=== PATIENT | male | born 1990 | race Caucasian/White ===

== ENCOUNTER 2024-08-18 09:40 | Emergency (ER) | payer OTHER, SELFPAY ==
--- OUTSIDE RECORDS SUMMARY | 2024-08-17 14:19 | XMS_ITS | Continuity of Care Document ---
Author Name [facility] Organization [facility] Care Team Providers Care Mobile Ui/Ux Designer Name Role Phone [facility] Unavailable Unavailable Problems Combined list of problems from Department of Defense and Veterans Affairs facilities. It does not include entries that were removed or entered in error. 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 [facility] FACET SYNDROME LUMBAR Active Condition DoD FACET SYNDROME THORACIC Active Condition DoD ASTIGMATISM Active Condition DoD lower back pain Active Condition [facility] visit for: screening exam pulmonary tuberculosis Inactive Condition DoD visit for: routine eye exam Inactive Condition DoD Laboratory Studies Inactive Condition Do D visit for: services physical demobilization Active Condition [facility] Vaccines Prophylactic Need Against Influenza Inactive Condition DoD headache Inactive Condition [facility] visit for: examination of subpopulation Inactive Condition DoD INJURY FROM TERRORIST EXPLOSION IMPROVISED EXPLOSIVE DEVICE Inactive Condition DoD visit for: screening exam neurological disorders traumatic brain injury Inactive Condition DoD Vaccines Prophylactic Need Against Single Disease Inactive Condition DoD SUPERFICIAL INJURY - ABRASION OF RIGHT LEG Inactive Condition DoD HEARING LOSS Active Condition [facility] visit for: services physical Active Condition DoD Patient Counseling: Active Condition Do D INGROWING NAIL WITH INFECTION Inactive Condition [facility] visit for: ears / hearing exam Active Condition [facility] visit for: services physical accession Active Condition [facility] NORMAL EXAMINATION Active Condition DoD BRONCHITIS Inactive Condition DoD SINUSITIS Active Condition DoD VIRAL SYNDROME Inactive Condition [facility] Medications Combined list of outpatient medications from Department of Defense and Veterans Affairs facilities.Medications provided include 1) outpatient medications from the last 15 months, and 2) patient-reported medications. Medication Details Route Status Patient Instructions Prescription Expires Prescription Number Last Dispense Date Ordering Provider Order Date Order Qty Source OMEPRAZOLE (omeprazole ), 40 MG, CAPSULE DR, ORAL, [facility], 500 ea. BOTTLE Active [id number] 2023 90 Pharmac y Data Transac tion Service Facilit y VALACYCLOVI R (valacyclov ir HCl), 500 MG, TABLET, ORAL, ANA PHA, 90 ea. BOTTLE Active [id number] 4 2023 90 Pharmac y Data Transac tion Service Facilit y Allergies, Adverse Reactions, Alerts Combined list of allergies from Department of Defense and Veterans Affairs facilities. It does not include entries that were removed or entered in error. Substance Category Reaction Severity Reaction type Status Date Reported Comments Source No Known Allergies Drug allergy (disorder) active 07/19/2008 [facility] [place] Immunizations Combined list of available immunizations from the Department of Defense and Veterans Affairs facilities. Immunization Series Date Given Administered By Site Reaction Lot Number CVX Code Drug Travel Writer Status Comments Source COVID-19, mRNA, LNP-S, PF, 100 mcg or 50 mcg dose 2020 [id number], () Not Given COVID-19, mRNA, LNP-S, PF, 100 mcg or 50 mcg dose DoD COVID-19, mRNA, LNP-S, PF, 100 mcg or 50 mcg dose 2020 [id number] [employer] (MOD) Not Given COVID-19, mRNA, LNP-S, PF, 100 mcg or 50 mcg dose DoD Influenza, seasonal, injectable 1 2010 [id number] [facility] VivoxSkout (SKB) complet ed Influenza , seasonal, injectabl e DoD anthrax vaccine 3 2010 [id number] [employer] Linsey (MIP) complet ed anthrax vaccine DoD anthrax vaccine 2 2010 [id number] [employer] Jbphh (MIP) complet ed anthrax vaccine DoD vaccinia (smallpox) vaccine 1 2010 [id number] 75 Unknown (UNK) complet ed vaccinia (smallpox ) vaccine DoD influenza virus vaccine, live, attenuated, for intranasal use 1 2009 [id number] Supersolid, Neuronetics. (MED) complet ed influenza virus vaccine, live, attenuate d, for intranasa l use DoD typhoid Vi capsular polysaccharid e vaccine 1 2009 [id number] Sanofi Pasteur (PMC) complet ed typhoid Vi capsular polysacch aride vaccine DoD anthrax vaccine 1 2009 [id number] 24 Unknown (UNK) comple t ed anthrax vaccine DoD Novel influenza-H1N 1-09, injectable 1 2009 [id number] 127 Novartis iSOCO Ranjith. (NOV) complet ed Novel influenza -[id number], injectabl e DoD hepatitis B vaccine, adult dosage 3 2008 [id number] 43 MedImmune, Inc. (MED) complet ed hepatitis B vaccine, adult dosage DoD hepatitis A vaccine, adult dosage 3 2008 [id number] 52 MedImmune, Inc. (MED) complet ed hepatitis A vaccine, adult dosage DoD influenza virus vaccine, live, attenuated, for intranasal use 1 2008 [id number] 111 Supersolid, Inc. (MED) complet ed influenza virus vaccine, live, attenuate d, for intranasa l use DoD hepatitis A and hepatitis B vaccine 2 2008 [id number] 104 Sanofi Pasteur (PMC) complet ed hepatitis A and hepatitis B vaccine DoD hepatitis A and hepatitis B vaccine 1 2008 [id number] 104 Sanofi Pasteur (PMC) complet ed hepatitis A and hepatitis B vaccine DoD measles, mumps and rubella virus vaccine 1 2008 UNK 03 Unknown (UNK) Not Given measles, mumps and rubella virus vaccine DoD varicella virus vaccine 1 2008 UNK 21 Unknown (UNK) Not Given varicella virus vaccine DoD poliovirus vaccine, inactivated 1 2008 [id number] 10 Sanofi Pasteur (PMC) complet ed polioviru s vaccine, inactivat ed DoD meningococcal polysaccharid e (groups A, C, Y and W-135) diphtheria toxoid conjugate vaccine (MCV4P) 1 2008 [id number] 114 Sanofi Pasteur (PMC) complet ed meningoco ccal polysacch aride (groups A, C, Y and W-135) diphtheri a toxoid conjugate vaccine (MCV4P) DoD tetanus toxoid, reduced diphtheria toxoid, and acellular pertu is vaccine, adsorbed 1 2008 [id number] 115 Sanofi Pasteur (PMC) complet ed tetanus toxoid, reduced diphtheri a toxoid, and acellular pertussis vaccine, adsorbed DoD Encounters Combined list of: 1) Encounters from Department of Veterans Affairs facilities going backup to the last 18 months, not all VA inpatient encounters are included; 2) Encounters from the Department of Defense facilities going backup to 280 months. Location Location Details Encounter Type Encounter Number Reason For Visit Attending Provider ADM Date DC Date Status Disposition Source [place], [place]([facility] [address] [address]) OUTPATIENT [id number] LACHELLE Barraza 07/19 Released w/o Limitations DARREN Hackett([place] [address]) DARREN Hackett([facility]) OUTPATIENT [id number] sore throat CINTHIA BLAKELY 07/19 Released w/o Limitations DARREN Hack[facility]) DARREN Hackett([facility]) OUTPATIENT [id number] MINERVA CHOW 08/02 Released w/o Limitations DARREN Hackett([facility] ) DERICK Johnson([facility]) OUTPATIENT [id number] INGROWN TOENAIL X 2 WEEKS GUILLERMO JONES 11/10 Released w/o Limitations DERICK Johnson([facility]) DERICK Johnson([facility]) OUTPATIENT [id number] Hearing Exam JACK CHEN 08/30 Released w/o Limitations DERICK Johnson(Hear ing Conserv ation 2) DERICK Johnson(Audiol ogy Clinic) OUTPATIENT [id number] [facility] New H2 BERTRAM DEVLIN H 09/04 Released w/o Limitations DERICK Johnson(Unruly ology Clinic) DERICK Johnson([facility]) OUTPATIENT [id number] infecti on LESA DOMINGUEZ 11/06 Released w/o Limitations DERICK Johnson([facility]) [facility] OUTPATIENT [id number] 09/21 Released w/o Limitations [facility] OUTPATIENT [id number] 12/03 Sick at Home/Quarter s Theater Facilit y Theater [facility] OUTPATIENT [id number] 12/30 Released w/o Limitations Theater Facilit y DERICK Johnson(Deploy ment) OUTPATIENT [id number] DEMOB/I MM/LAB/ VISION LISA PALMA 04/04 Released w/o Limitations DERICK Johnson(Depl oyment) DERICK Johnson(Hearin g Conservat ion 2) OUTPATIENT [id number] Hearing Exam VON PALOMO 04/04 Released w/o Limitations DERICK Johnson(Hear ing Conserv ation 2) DERICK Johnson(Deploy ment) OUTPATIENT [id number] IMM GERI GERBER 04/07 Released w/o Limitations DERICK Johnson(Depl oyment) DERICK Johnson(Hearin g Conservat ion 2) OUTPATIENT [id number] Hearing Exam JACK CHEN 04/11 Released w/o Limitations DERICK Johnson(Hear ing Conserv ation 2) DERICK Johnson([address] WTT 3) OUTPATIENT [id number] ETS JOSE LUIS MUELLER 06/18 Released w/o Limitations DERICK Johnson([address] WTT 3) DERICK Johnson([facility] Opto) OUTPATIENT [id number] Notes Entered by: LORE GARCÍA 19 Jun 2011 0920 ------- ------- ------- ------- -- ets ELIA Rosa 06/18 Released w/o Limitations DERICK Johnson([facility] Opto) DERICK Johnson([address] 4) OUTPATIENT [id number] phase 2 LESA DOMINGUEZ 07/13 Released w/o Limitations DERICK Johnson([address] 4) DERICK Johnson([facility] Opto) OUTPATIENT [id number] JOSELIN CATHERINE 07/15 Released w/o Limitations DERICK Johnson([facility] Opto) DERICK Johnson([facility] Chiro) OUTPATIENT [id number] lower back pain GOLDBERG, ANGEL A 07/17 Released w/o Limitations DERICK Johnson([facility] Chiro) DERICK Johnson([facility] Chiro) OUTPATIENT [id number] lbp GOLDBERG, ANGEL A 07/27 Released w/o Limitations DERICK Johnson([facility] Chiro) DERICK Johnson([facility] Chiro) OUTPATIENT [id number] lbp EDWAR GOLDBERGO A 08/03 Released w/o Limitations DERICK Johnson([facility] Chiro) DERICK Johnson([facility] Chiro) OUTPATIENT [id number] lbp EDWAR GOLDBERGO A 08/12 Released w/o Limitations DERICK Johnson([facility] Chiro) DERICK Johnson([facility]) OUTPATIENT [id number] lbp EDWAR GOLDBERGO A 08/20 Released w/o Limitations DERICK Johnson([facility] Chiro) DERICK Johnson([facility]) OUTPATIENT [id number] mri review lb ANGEL GOLDBERG A 08/28 Released w/o Limitations DERICK Johnson([facility] Chiro) DERICK Johnson([facility]) OUTPATIENT [id number] PDHRA STEVEN KNIGHT E 09/07 Released w/o Limitations DERICK Johnson(Depl oyment) Procedures Combined list of: 1) Procedures from Department of Veterans Affairs facilities going back up to thelast 18 months, not all VA non-surgical procedures are included; 2) All procedures from the Department of Defense facilities. Procedure Procedure Type Code Date Perfomer Comments [facility] e INFECTIOUS AGENT ANTIGEN DETECTION BY IMMUNOASSAY WITH DIRECT OPTICAL (IE, VISUAL) OBSERVATION; INFLUENZA DoD CHIROPRACTIC MANIPULATIVE TREATMENT (CMT); SPINAL, 3-4 REGIONS DoD APPLICATION OF A MODALITY TO 1 OR MORE AREAS; ELECTRICAL STIMULATION (MANUAL), EACH 15 MINUTES DoD APPLICATION OF A MODALITY TO 1 OR MORE AREAS; ELECTRICAL STIMULATION (MANUAL), EACH 15 MINUTES DoD CHIROPRACTIC MANIPULATIVE TREATMENT (CMT); SPINAL, 3-4 REGIONS DoD CHIROPRACTIC MANIPULATIVE TREATMENT (CMT); SPINAL, 3-4 REGIONS DoD FITTING OF SPECTACLES, EXCEPT FOR APHAKIA; MONOFOCAL DoD SCREENING TEST OF VISUAL ACUITY, QUANTITATIVE, BILATERAL DoD EAR PROTECTOR ATTENUATION MEASUREMENTS DoD SKIN TEST; TUBERCULOSIS, INTRADERMAL DoD EAR PROTECTOR ATTENUATION MEASUREMENTS DoD SCREENING TEST OF VISUAL ACUITY, QUANTITATIVE, BILATERAL DoD SKIN TEST; TUBERCULOSIS, INTRADERMAL DoD COLLECTION OF VENOUS BLOOD BY VENIPUNCTURE [facility] EDUCATION &TRAINING, PATIENT SELF-MGT QUALIFIED, NONPHYSICIAN HEALTH REFRIGERATION BRAZER/SOLDERER USING STDIZED CURRICULUM, [id number] W THE PATIENT (COULD INCL CAREGIVER/FAMILY) EA 30 MIN; INDIVIDUAL PATIENT DoD SCREENING TEST OF VISUAL ACUITY, QUANTITATIVE, BILATERAL DoD TYPHOID VACCINE, CAPSULAR POLYSACCHARIDE (VICPS), FOR INTRAMUSCULAR USE DoD EAR PROTECTOR ATTENUATION MEASUREMENTS DoD ANTHRAX VACCINE, FOR SUBCUTANEOUS OR INTRAMUSCULAR USE [facility] COLLECTION OF VENOUS BLOOD BY VENIPUNCTURE DoD SCREENING TEST OF VISUAL ACUITY, QUANTITATIVE, BILATERAL 009 DoD Chiropractic Manip Treatmt (CMT) [facility] [place] [facility] [place] Chiropractic Manip Treatmt (CMT) Spinal [place] [id number] 012 ANGEL GOLDBERG CMT of the following listed segmental dysfunctions: Thoracic: high velocity, low amplitude PA rotational thrust into the segment's para-physiologic al space to improve biomechanical function. Lumbar: high velocity, low amplitude PA rotational thrust into the segment's para-physiologic al space to improve biomechanical function. SI joints: side posture PA thrust into the segment's para-physiologic al space to improve biomechanical function. [facility] Modalities Electrical Stimulation Attended Each 15 Minutes Modalities Electrical Stimulation Attended Each 15 Minutes [id number] GUILLE MCCULLOUGH IFS to lumbar paraspinal muscles: 10', 27460 CV, 2500 Akers freq, 40% vscan. CMT of the following listed segmental dysfunctions: Thoracic: high velocity, low amplitude PA rotational thrust into the segment's para-physiologic al space to improve biomechanical function. Lumbar: high velocity, low amplitude PA rotational thrust into the segment's para-physiologic al space to improve biomechanical function. SI joints: side posture PA thrust into the segment's para-physiologic al space to improve biomechanical function. [facility] Chiropractic Manip Treatmt (CMT) Spinal [place] Chiropractic Manip Treatmt (CMT) Spinal [place] [address] [facility] Chiropractic Manip Treatmt (CMT) Spinal [place] Chiropractic Manip Treatmt (CMT) Spinal [place] [address] [facility] CMT of the following listed segmental dysfunctions: Thoracic: high velocity, low amplitude PA rotational thrust into the segment's para-physiologic al space to improve biomechanical function. Lumbar: high velocity, low amplitude PA rotational thrust into the segment's para-physiologic al space to improve biomechanical function. SI joints: side posture PA thrust into the segment's para-physiologic al space to improve biomechanical function. [facility] Modalities Electrical Stimulation Attended Each 15 Minutes Modalities Electrical Stimulation Attended Each [address] [facility] Chiropractic Manip Treatmt (CMT) Spinal Three To Four [facility] Chiropractic Manip Treatmt (CMT) Spinal Three [place] Four Region [facility] ANGEL GOLDBERG CMT of the following listed segmental dysfunctions: Thoracic: high velocity, low amplitude PA rotational thrust into the segment's para-physiologic al space to improve biomechanical function. Lumbar: high velocity, low amplitude PA rotational thrust into the segment's para-physiologic al space to improve biomechanical function. SI joints: side posture PA thrust into the segment's para-physiologic al space to improve biomechanical function. [facility] Modalities Electrical Stimulation Attended Each 15 Minutes Modalities Electrical Stimulation Attended Each 15 Minutes ANGEL GOLDBERG IFS to lumbar paraspinal muscles: 10', 73569 CV, 2500 Akers freq, 40% vscan. [facility] Chiropractic Manip Treatmt (CMT) [facility] [place] Chiropractic Manip Treatmt (CMT) Spinal [place] 28[address] ANGEL GOLDBERG CMT of the following listed segmental dysfunctions: Thoracic: high velocity, low amplitude PA rotational thrust into the segment's para-physiologic al space to improve biomechanical function. Lumbar: high velocity, low amplitude PA rotational thrust into the segment's para-physiologic al space to improve biomechanical function. SI joints: side posture PA thrust into the segment's para-physiologic al space to improve biomechanical function. [facility] Spectacles Services Fitting Monofocals (Not For Aphakia) Spectacles Services Fitting Monofocals (Not For Aphakia) 74243 JOSELIN PAEZ Determination Of Refractive State Determination Of Refractive State 29391 JOSELIN PAEZ Ophthalmological Prior Patient Start Comprehensive Care Ophthalmological Prior Patient Start Comprehensive Care 05485 JOSELIN PAEZ Screening Test Of Visual Acuity, Quantitative, Bilateral Screening Test Of Visual Acuity, Quantitative, Bilateral 15035 ELIA MCKINLEY Audiogram (Screening) Audiogram (Screening) 49808 012 JACK CHEN [facility] Testing Audiometry Group Testing [phone] JACK CHEN Ear Protector Attenuation Measurements Ear Protector Attenuation Measurements 10335 012 JACK CHEN Skin Test Anergy Tuberculin Intradermal Skin Test Anergy Tuberculin Intradermal 60917 012 SULY DAVIS [facility] Testing Audiometry Group Testing 04913 012 [place] Ear Protector Attenuation Measurements Ear Protector Attenuation Measurements 98493 [place] Audiogram (Screening) Audiogram (Screening) 15958 012 [place] Screening Test Of Visual Acuity, Quantitative, Bilateral Screening Test Of Visual Acuity, Quantitative, Bilateral 56287 DANYEL AGUIRRE [facility] Venipuncture Venipuncture [address] [place] DANYEL [facility] Skin Test Anergy Tuberculin Intradermal Skin Test Anergy Tuberculin Intradermal 77498 AGUIRREDANYEL [facility] Patient Counseling Medical Management Individual Patient Patient Counseling Medical Management Individual Patient [phone] BERTRAM DEVLIN [facility] Ear Protector Attenuation Measurements Ear Protector Attenuation Measurements 26575 010 OLIVER SILVA [facility] Audiogram (Screening) Audiogram (Screening) 72845 OLIVER SILVA [facility] Testing Audiometry Group Testing 79030 OLIVER SILVA Infect Agt Antig Det Immunoa ay Dir Opt Obs Influenza Infect Agt Antig Det Immunoassay Dir Opt Obs Influenza 67682 CINTHIA BLAKELY [facility] Rapid Antigen Identification Streptococcus Group A Beta Hemolytic Rapid Antigen Identification Streptococcus Group A Beta Hemolytic 52348 CINTHIA BLAKELY [facility] Social History Combined list of available smoking, tobacco, and other social history from Department of Defense and Veterans Affairs facilities. Social History Type Response Date Comment Sour e This section is an empty social history section. [facility]
[2024-08-18] VITALS (7 sets, daily range): BP systolic 105; BP diastolic 65; PULSE 103–126; RESP 16–18; TEMP 37.7; O2SAT 95–97; BMI 28.2
--- OUTSIDE RECORDS SUMMARY | 2024-08-18 09:43 | XMS_ITS | Clinical Summary ---
Author Organization [facility] Address [address] [place] [id number] Care Team Providers Care Undercover Cop Name Role Phone Kelvin Marie MD Primary Care Provider [phone] Allergies No known active allergies Medications valACYclovir (VALTREX) 500 mg tabletIndication s:PCR DNA positive for HSV2 Take 1 Tablet (500 mg) by mouth once daily. 90 Tablet 11/11/2023 Active omeprazole (PRILOSEC) 40 mg Delayed-Release capsuleIndicatio ns:Gastroesophag eal reflux disease without esophagitis Take 1 Capsule (40 mg) by mouth once daily. 90 Capsule 11/11/2023 Active meloxicam 15 mg tabletIndication s:Arthralgia, unspecified joint Take 1 Tablet (15 mg) by mouth once daily. 90 Tablet 11/11/2023 Active Active Problems No known active problems Encounters Date Type Department Care Team Description 08/17/2024 2:45 PM CDT - 08/17/2024 11:59 PM CDT Hospital Encounter [facility] [address] [place] [address] Jacy Merchant NP Abdominal pain, RLQ (right lower quadrant) 08/17/2024 2:20 PM CDT Office Visit [facility] [address] [facility] [place] [phone] Jacy Merchant NP Abdominal Pain (LRQ tenderness, low grade fever, x 3 days) 08/17/2024 Travel from Last 3 Months Immunizations Immunization Administration Dates Next Due Anthrax Vaccine 09/21/2010,03/28/2010,08/22/2009 COVID-19 vaccine (Moderna 10 0mcg/0.5mL) PF, MDV 02/17/2021,12/29/2020 HepA-HepB (Twinrix) 08/14/2008,06/09/2008 Hepatitis A (Adult) 01/10/2009 Hepatitis B (Adult) 01/10/2009 Inactivated Polio Vaccine 06/07/2008 Influenza A (H1N1), Inactiva tere (Age >=3 Years) 04/09/2009 Influenza, IIV4 02/17/2020 Influenza,CCIIV4 PRESERV FREE 12/30/2021, 020 Influenza,LAIV4 Live Intranasal (Flumist) 2009,12/04/2008 Meningococcal Vaccine (Menactra) 06/07/2008 Smallpox (Vaccinia) Live [id number] 03/28/2010 Tdap 09/13/2018,06/07/2008 Typhoid (injectable) 08/30/2009 Family History Medical History Relation Name Comments Hypertension Father Diabetes Mother Hypertension Mother Relation Name Status Comments Father Alive Mother Alive Social History Tobacco Use Types Packs/Day Years Used Date Smoking Tobacco: Never Passive Smoke Exposure: Past Smokeless Tobacco: Former Chew Quit: 11/25/2021 Tobacco Cessation:Counseling Given: Not Answered Passive Exposure Comments:mom smoked in child epperson life Alcohol Use Standard Drinks/Week Comments Yes 0 (1 standard drink = 0.6 oz pure alcohol) occasionally wine, beer or liquor PHQ-2 Answer Date Recorded PHQ-2 TOTAL SCORE 0 11/11/2023 Social Connections Answer Date Recorded Frequency of Communication with Friends and Fami ly 0 05/04/2022 Financial Resource Strain Answer Date R ecorded Difficulty of Paying Living Expenses 3 05/04/2022 Difficulty of Paying Living Expenses Not on file 05/04/2022 Food Insecurity Answer Date Recorded Worried About Running Out of Food in the Last Ye ar 1 05/04/2022 Transportation Needs Answer Date Record ed Lack of Transportation (Medical) 1 05/04/2022 Housing Stability Answer Date Recorded Unable to Pay for Housing in the Last Year 1 05/04/2022 Sex and Gender Information Value Date Recorded Sex Assigned at Not on file Legal Sex Male 3:04 PM FLEET ASSISTANT Gender Identity Not on file Sexual Orientation Not on file Obstetrics History Last Filed Vital Signs Vital Sign Reading Time Taken Comments Blood Pressure 124/69 08/17/2024 2:25 PM CDT Pulse 111 08/17/2024 2:25 PM CDT Temperature 37.6 C (99.6 F) 08/17/2024 2:25 PM CDT Respiratory Rate 18 08/17/2024 2:25 PM CDT Oxygen Saturation 98% 08/17/2024 2:25 PM CDT Inhaled Oxygen Concentration - - Weight 80.6 kg (177 lb 11.2 oz) 08/17/2024 2:25 PM CDT Height 171.5 cm (5' 7.5) 04/14/2024 10 :27 AM FLEET ASSISTANT Body Mass Index 27.42 04/14/2024 10:27 AM FLEET ASSISTANT Plan of Treatment Upcoming Encounters Date Type Department Care Team (Late st Contact Info) Description 08/18/2024 3:00 PM CDT Office Visit [address] [phone] Jacy Mistry DO [address] [place] [address] 08/24/2024 2:50 PM CDT Office Visit [address] [place] [phone] Kelvin Marie MD [address] [place] [address] Health Maintenance Due Date Last Done Comments COVID-19 vaccine series ( season) 2023 02/17/2021, 12/29/2020 Depression screening for age 12+ 11/10/2024 11/11/2023, 06/06/2022, 03/26/2021, Additional history exists Influenza Vaccine (Season Ended) 2024 12/30/2021, 02/17/2020, 02/17/2020, Additional history exists BMI (ht and wt on same day) for age 18+ 04/14/2025 04/14/2024, 11/11/2023, 02/03/2023, Additional history exists Tetanus booster 09/13/2028 09/13/2018, 06/07/2008 Lipids for age 35-44 04/29/2029 04/29/2024, 11/11/2023, 11/11/2023, Additional history exists Hepatitis B series for 19+ Completed 01/10, 08/14/2008, 06/09/2008 HIV for age 15-65 Completed 02/19/2015, 07/26/2013 Tdap Completed 09/13/2018, 06/07/2008 Hepatitis C screening for age 18-79 Completed 06/06/2022 Pneumococcal series for age 6-49 Aged Out No longer eligible based on patient's age to complete this topic Procedures Procedure Name Priority Date/Time Associated Diagnosis Comments CBC WITH AUTO DIFFERENTIAL STAT 08/17/2024 3:25 PM CDT Abdominal pain, RLQ (right lower quadrant) BASIC METABOLIC PANEL STAT 08/17/2024 3:25 PM CDT Abdominal pain, RLQ (right lower quadrant) CBC WITH AUTO DIFFERENTIAL STAT 08/17/2024 3:25 PM CDT Abdominal pain, RLQ (right lower quadrant) CT ABDOMEN PELVIS W STAT 08/17/2024 3 :08 PM CDT Abdominal pain, RLQ (right lower quadrant) LIPID PANEL W REFLEX MEASURED LDL Routine 04/29/2024 11:12 AM FLEET ASSISTANT Hypertriglyceridemi a LC HCV ANTIBODY RFX TO QUANT PCR Routine 06/06/2022 4:25 PM CDT Well adult exam ANTI HIV 1/2 Routine 02/19/2015 3:58 PM FLEET ASSISTANT Rash from Last 3 Months or Most Recently Relevant to Health Maintenance Results * (ABNORMAL) CBC WITH AUTO DIFFERENTIAL (08/17/2024 3:25 PM CDT) WHITE BLOOD COUNT 7.6 4.5 - 11.0 thou/cu mm 08/17/2024 3:40 PM [facility] RED BLOOD COUNT 4.54 4.30 - 5.90 mil/cu mm 08/17/2024 3:40 PM [facility] HEMOGLOBIN 13.9 13.5 - 17.5 g/dL 08/17/2024 3:40 PM [facility] HEMATOCRIT 39.8 37.0 - 53.0 % 08/17/2024 3:40 PM [facility] MCV 88 80 - 100 fL 08/17/2024 3:40 PM [facility] MCH 30.6 26.0 - 34.0 pg 08/17/2024 3:40 PM [facility] MCHC 34.9 32.0 - 36.0 g/dL 08/17/2024 3:40 PM [facility] RDW 12.7 11.5 - 15.5 % 08/17/2024 3:40 PM [facility] PLATELET COUNT 147 140 - 440 thou/cu mm 08/17/2024 3:40 PM [facility] MPV 10.2 6.5 - 11.0 fL 08/17/2024 3:40 PM [facility] % NEUT 73.7 % 08/17/2024 3:40 PM [facility] % LYMPH 13.3 % 08/17/2024 3:40 PM [facility] % MONO 12.1 % 08/17/2024 3:40 PM [facility] % EOS 0.5 % 08/17/2024 3:40 PM [facility] % BASO 0.4 % 08/17/2024 3:40 PM [facility] ABSOLUTE NEUTROPHILS 5.6 1.7 - 7.0 thou/cu mm 08/17/2024 3:40 PM [facility] ABSOLUTE LYMPHOCYTES 1.0 0.9 - 2.9 thou/cu mm 08/17/2024 3:40 PM [facility] ABSOLUTE MONOCYTES 0.9(H) <0.9 thou/cu mm 08/17/2024 3:40 PM CDT [facility] ABSOLUTE EOSINOPHILS 0.0 <0.5 thou/cu mm 08/17/2024 3:40 PM CDT [facility] ABSOLUTE BASOPHILS 0.0 <0.3 thou/cu mm 08/17/2024 3:40 PM T [facility] Blood BLOOD SPECIMEN / Unknown [facility] / Unknown 08/17/2024 3:25 PM CDT 08/17/2024 3:33 PM CDT us Jacy Merchant LABOR SUPERVISOR HEMATOLOGY Final Re sult [facility] [address] [place], [place] [id number] * (ABNORMAL) BASIC METABOLIC PANEL (08/17/2024 3:25 PM CDT) SODIUM 133(L) 136 - 145 mmol/L 08/17/2024 3:55 PM [facility] POTASSIUM 4.3 3.5 - 5.1 mmol/L 08/17/2024 3:55 PM [facility] CHLORIDE 97(L) 98 - 107 mmol/L 08/17/2024 3:55 PM [facility] CO2,TOTAL 29 22 - 29 mmol/L 08/17/2024 3:55 PM [facility] ANION GAP 7 5 - 18 08/17/2024 3:55 PM [facility] GLUCOSE 93 70 - 99 mg/dL 08/17/2024 3:55 PM [facility] CALCIUM 8.6(L) 8.8 - 10.4 mg/dL 08/17/2024 3:55 PM [facility] Comment: Reference ranges for this test were updated on 01/19/2024 to reflect our healthy population more accurately. Reference range changes are not retroactively applied to results, but previous results using the same methodology can be interpreted in the context of the new reference range. BUN 12 6 - 20 mg/dL 08/17/2024 3:55 PM [facility] CREATININE 0.77 0.70 - 1.20 mg/dL 08/17/2024 3:55 PM CDT [facility] BUN/CREAT RATIO 16 10 - 20 3:55 PM CDT [facility] eGFR >90 >90 mL/min/1. 73m2 08/17/2024 3:55 PM CDT [facility] Comment:As of 2021, eG FR is calculated by the CKD-EPI creatinine equation without race adjustment. eGFR can be influenced by muscle mass, exercise, and diet. The reported eGFR is an estimation only and is only applicable if the renal function is stable. Blood BLOOD SPECIMEN / Unknown [facility] / Unknown 08/17/2024 3:25 PM CDT 08/17/2024 3:33 PM CDT us Jacy Merchant NP CHEMISTRY Final Re sult [facility] [address] [place] [address] * CT ABDOMEN PELVIS W (08/17/2024 3:08 PM CDT) Anatomical Region Laterality Modality Abdomen, Pelvis, AORTA, LIVER, SPLEEN Computed Tomography 08/17/2024 3:31 PM CDT Impressions 08/17/2024 3:31 PM CDT 1. Moderate submucosal edema is compatible with infectious or inflammatory colitis. 2. Mild splenomegaly. 3. 4 millimeter bilateral pulmonary nodules as described above. Please note that all CT scans at this facility use dose modulation, iterative reconstruction, and/or weight-based dosing when appropriate to reduce radiation dose to as low as reasonably achievable. Dictated by Abner Winchester MD @ 08/17/2024 3:31:19 PM (Electronically Signed) Narrative 08/17/2024 3:31 PM CDT For Patients: As a result of the 21st Century Cures Act, medical imaging exams and procedure reports are released immediately into your electronic medical record. You may view this report before your referring provider. If you have questions, please contact your health care provider. INDICATION: Abdominal pain, RLQ (right lower quadrant)RLQ abdominal pain TECHNIQUE: CT of the abdomen and pelvis was obtained with 100 mL of Omnipaque 300 intravenous contrast. Oral water was administered. Please note that all CT scans at this facility use dose modulation, iterative reconstruction, and/or weight-based dosing when appropriate to reduce radiation dose to as low as reasonably achievable. COMPARISON: None. FINDINGS: Lower thorax: 4 millimeter right lower lobe pulmonary nodule (3/35). 4 millimeter left lower lobe pulmonary nodule (3/11). Consensus guidelines for incidentally detected lung nodule(s) less than [address], not applicable if known malignancy or immunocompromise: Low risk: No routine follow-up. High risk without suspicious morphology AND not in upper lobe: Consider CT at 12 months. High risk AND nodule(s) with suspicious morphology OR in upper lobe: Strongly consider CT at 12 months. (Sandi, et al. Radiology 2017) Mild bilateral gynecomastia. Liver and biliary tree: Normal. Gallbladder: Normal. Spleen: Mildly enlarged measuring 12.8 centimeter in length (2/53). Pancreas: Normal. Adrenal glands: Normal. Kidneys and ureters: No hydronephrosis or obstructing renal calculi. Gastrointestinal tract: Moderate submucosal edema of the right colon. No evidence of acute appendicitis. No evidence of bowel obstruction. Peritoneal cavity: Trace free fluid is seen within the pelvis. Bladder: Normal. Pelvic organs: Normal. Vasculature: Normal. Lymph nodes: Normal. Abdominal wall: Small fat containing periumbilical hernia. Musculoskeletal: Normal. Procedure Note Bright Winchester MD - 08/17/2024 For Patients: As a result of the 21st Century Cures Act, medical imagingexams and procedure reports are released immediately into your electronicmedical record. You may view this report before your referring provider.If you have questions, please contact your health care provider. INDICATION: Abdominal pain, RLQ (right lower quadrant)RLQ abdominal pain TECHNIQUE: CT of the abdomen and pelvis was obtained with 100 mL of Omnipaque 300intravenous contrast. Oral water was administered. Please note that all CT scans at this facility use dose modulation,iterative reconstruction, and/or weight-based dosing when appropriate toreduce radiation dose to as low as reasonably achievable. COMPARISON: None. FINDINGS: Lower thorax: 4 millimeter right lower lobe pulmonary nodule (3/35). 4 millimeter left lower lobe pulmonary nodule (3/11). Consensus guidelines for incidentally detected lung nodule(s) less than 6mm on incomplete thoracic CT, not applicable if known malignancy orimmunocompromise: Low risk: No routine follow-up. High risk without suspicious morphology AND not in upper lobe: Consider CTat 12 months. High risk AND nodule(s) with suspicious morphology OR in upper lobe:Strongly consider CT at 12 months. (Sandi, et al. Radiology 2017) Mild bilateral gynecomastia. Liver and biliary tree: Normal. Gallbladder: Normal. Spleen: Mildly enlarged measuring 12.8 centimeter in length (2/53). Pancreas: Normal. Adrenal glands: Normal. Kidneys and ureters: No hydronephrosis or obstructing renal calculi. Gastrointestinal tract: Moderate submucosal edema of the right colon. Noevidence of acute appendicitis. No evidence of bowel obstruction. Peritoneal cavity: Trace free fluid is seen within the pelvis. Bladder: Normal. Pelvic organs: Normal. Vasculature: Normal. Lymph nodes: Normal. Abdominal wall: Small fat containing periumbilical hernia. Musculoskeletal: Normal. IMPRESSION: 1. Moderate submucosal edema is compatible with infectious or inflammatorycolitis. 2. Mild splenomegaly. 3. 4 millimeter bilateral pulmonary nodules as described above. Please note that all CT scans at this facility use dose modulation,iterative reconstruction, and/or weight-based dosing when appropriate toreduce radiation dose to as low as reasonably achievable. Dictated by Abner Winchester MD @ 08/17/2024 3:31:19 PM (Electronically Signed) us Jacy Merchant NP CT Final Re sult * (ABNORMAL) LIPID PANEL W REFLEX MEASURED LDL (04/29/2024 11:12 AM FLEET ASSISTANT) CHOLESTEROL, TOTAL 216(H) <200 mg/dL [facility] HDL CHOLESTEROL 36(L) > OR = 40 mg/dL [facility] TRIGLYCERIDES 400(H) <150 mg/dL [facility] Comment: If a non-fasting specimen was collected, consider repeat triglyceride testing on a fasting specimen if clinically indicated. Sg et al. J. of Clin. Lipidol. 2015;9:129-169. LDL-CHOLESTEROL 131(H) mg/dL (calc) [facility] Comment: Reference range: <100 Desirable range <100 mg/dL for primary prevention; <70 mg/dL for patients with CHD or diabetic patients with > or = 2 CHD risk factors. LDL-C is now calculated using the Sergio calculation, which is a validated novel method providing better accuracy than the Friedewald equation in the estimation of LDL-C. Celso SS et al. KAMALA. 2013;310(39): 2624-3639 (http://education.Panjiva/faq/BYN675) CHOL/HDLC RATIO 6.0(H) <5.0 (calc) [facility] NON HDL CHOLESTEROL 180(H) <130 mg/dL (calc) [facility] Comment: For patients with diabetes plus 1 major ASCVD risk factor, treating to a non-HDL-C goal of <100 mg/dL (LDL-C of <70 mg/dL) is considered a therapeutic option. Blood BLOOD SPECIMEN / Unknown 04/29/2024 11:12 AM FLEET ASSISTANT 04/29/2024 11:12 AM FLEET ASSISTANT Narrative [facility] - 04/30/2024 4:22 AM FLEET ASSISTANT FASTING:YES FASTING: YES Lalo Miller MD CHEMISTRY Final R esult [facility] [address] [place] [address], [facility] [address] [place] [address] * LC HCV ANTIBODY RFX TO QUANT PCR (06/06/2022 4:25 PM CDT) HCV Ab Non Reactive Non Reactive 06/11/2022 10:06 PM CDT [facility] Blood BLOOD SPECIMEN / Unknown Venipuncture / Unknown 06/06/2022 4:25 PM CDT 06/06/2022 4:27 PM CDT Narrative [facility] - 06/11/2022 10:06 PM CDT Performed at: [address] [place] [id number] Social Welfare Research Worker: Eulogio Hensley MD, Phone: [phone] Kelvin Marie MD LABORATORY Final Resul t [facility]) [facility] [place], [place] [address] * ANTI HIV 1/2 (02/19/2015 3:58 PM FLEET ASSISTANT) HIV-1/HIV-2 ANTIBODY Non-Reacti ve Non-Reacti ve 02/19/2015 7:29 PM FLEET ASSISTANT [facility] Blood specimen (specimen) BLOOD SPECIMEN / Unknown Venipuncture / Unknown 02/19/2015 3:58 PM FLEET ASSISTANT 02/19/2015 3:58 PM FLEET ASSISTANT Narrative [facility] - 02/19/2015 7:29 PM FLEET ASSISTANT HIV-1 p24 and HIV-1/HIV-2 Ab not detected Kelvin Marie MD SEND OUTS Final Resul t [facility] [address] [place] [address], from Last 3 Months or Most Recently Relevant to Health Maintenance Insurance [employer] * Guarantor: EMEKA [employer] [facility] Account Type Relation to Patient Date of Phone Billing Address Occ Health/[employer]anj[employer] Employer [address] [place] [address] Care Teams Undercover Cop Relationship Specialty Start Date End Date Kelvin Marie MD [address] [place] [address] LUCILA Mejia [id number] PCP - General Family Practice 02/15/15
--- NOTE | 2024-08-18 10:26 | ED.ABDPAIN ---
HPI - Abdominal Pain General Time Seen by Provider: 10:00 Date Seen: 08/18/24 Chief Complaint: Abdominal Pain Stated Complaint: fever- abdominal pain Time Seen by Provider: 08/18/24 09:59 Source: patient and family Mode of arrival: ambulatory History of Present Illness HPI narrative: The patient is a previously healthy 34-year-old male with significant past medical history who presents to emergency department for evaluation of fever and abdominal pain. Patient reports that symptoms started Thursday night with low-grade fever, generalized body aches and abdominal discomfort. Patient states that initially he thought he was constipated so did try taking milk of magnesium. Patient reports that his abdominal pain was described as a sharp mid lower and right lower abdominal pain with cramping sensation. Patient reports nausea but denies any vomiting. Patient reports that the male of magnesium worked and has had multiple episodes of loose watery nonbloody stools. Patient states that having done which did not help his abdominal pain so yesterday was seen in urgent care for evaluation of his ongoing fever, abdominal pain, and had a CT scan to rule out appendicitis. Patient reports the CT demonstrated colitis. Patient states they not give him any medications or treatment in the urgent care setting. Patient states that last night he had high fever 102/103 along with high fever this morning so came in for further evaluation. Patient last took 600 mg of ibuprofen at 3:00 a.m.. No prior abdominal surgeries, no sick contacts, no recent antibiotic use, no recent travel. No other complaints. Related Data Home Medications ?Medication ?Instructions ?Recorded ?Confirmed meloxicam 15 mg tablet 15 mg PO DAILY 08/18/24 08/18/24 omeprazole 40 mg capsule,delayed 40 mg PO DAILY 08/18/24 08/18/24 release valacyclovir 500 mg tablet 500 mg PO DAILY 08/18/24 08/18/24 Allergies Allergy/AdvReac Type Severity Reaction Status Date / Time No Known Drug Allergies Allergy Verified 08/18/24 09:53 Review of Systems Narrative Past medical history, past surgical history, medications, allergies, family history, and social history were reviewed with the patient. No additional pertinent items. A medically appropriate review of systems was performed with pertinent positives and negatives noted in HPI, all other systems negative. Exam Narrative: Exam Narrative: General: Low grade fever 100, ill but nontoxic appearing, in distress HEENT: Normocephalic, atraumatic, conjunctiva normal, posterior pharynx with mild erythema, no swelling, no exudates, mmm Neck: non-tender, supple Cardio: tachycardic rate. regular rhythm Resp: Normal work of breathing, no respiratory distress, lungs clear bilaterally, no wheezing, rhonchi, rales Chest/Back: no visual signs of trauma, no midline TTP, no CVA tenderness Abdomen: soft, non distension, mild TTP in right upper and right lower abdomen with no rebound, no guarding, no peritoneal signs Neuro: alert and fully oriented. CN II-XII grossly intact. Grossly normal strength and sensation in all extremities. MSK: no deformities. Normal range of motion Integumentary/Skin: no rash visualized, normal color Psych: normal affect, normal behavior Const: Vital Signs, click to edit/add: Vital Signs - 24 hr 08/18/24 09:47 Temperature 100 F H Pulse Rate [Pulse Oximeter] 126 H Respiratory Rate 16 Blood Pressure [Ri ght Upper Arm] 105/65 Pulse Oximetry 95 Oxygen Delivery Me thod Room Air Documenting provider has reviewed patient's vital signs: yes Course Course ED Course: 34-year-old male with no significant past medical history who presents emergency department for evaluation of fever, body aches, abdominal discomfort for the past few days. Upon arrival the patient is ill but nontoxic appearing, low-grade fever 103? F, tachycardic with a heart rate of 126, blood pressure 105/65, oxygen 95% on room air. Differential diagnosis includes but is not limited to pancreatitis versus cholecystitis versus appendicitis versus colitis versus cystitis versus pyelonephritis versus COVID/influenza versus strep versus viral illness among others. Upon arrival patient was treated with IV Zofran, Pepcid, 1 L IV fluid bolus, Tylenol. Comprehensive labs remarkable for no leukocytosis white blood cell count 7.5, hemoglobin 14.3, no acute metabolic or electrolyte abnormality, no transaminitis, normal lactic acid, normal bilirubin, viral testing negative for COVID, influenza, RSV, strep. I reviewed patient's urgent care visit from yesterday including comprehensive labs which were remarkable for white blood cell count of 7.6, hemoglobin 13.9, sodium 133, potassium 4.3, creatinine 0.77, CT scan of the abdomen and pelvis demonstrated moderate submucosal edema compatible with infectious or inflammatory colitis. No other acute intra-abdominal infection or pathology. On re-evaluation patient reports significant improvement of symptoms and is feeling much better. Abdomen is benign, abdomen is soft, nontender, nondistended, no peritoneal signs. Nonsurgical abdomen. I discussed results with patient, suspect likely viral illness and colitis given CT imaging yesterday. No emergent indication for repeat imaging at this time. No other evidence of acute infection, no leukocytosis, normal lactic acid. At this time patient is feeling better, nontoxic appearing, and feels comfortable discharge home with close outpatient follow-up. Patient has a scheduled follow-up on Thursday with his primary care provider. Recommend supportive care with rest, oral hydration, Tylenol and ibuprofen as needed for fever, body aches. Strict return precautions discussed if persistent high fever, vomiting, severe pain, any worsening symptoms. Patient understands agrees with the plan. Vital Signs Vital signs: Initial Vital Signs Temperature 100 F H 08/18/24 09:47 Temperature Source Temporal Artery Scan 08/18/24 09:47 Pulse Rate 126 H 08/18/24 09:47 Respiratory Rate 16 08/18/24 09:47 Blood Pressure 105/65 08/18/24 09:47 Blood Pressure Mean 78 08/18/24 09:47 Blood Pressure Position Sitting 08/18/24 09:47 Pulse Oximetry 95 08/18/24 09:47 Oxygen Delivery Method Room Air 08/18/24 09:47 Vital Signs Temperature 100 F H 08/18/24 09:47 Pulse Rate 126 H 08/18/24 09:47 Respiratory Rate 16 08/18/24 09:47 Blood Pressure 105/65 08/18/24 09:47 Pulse Oximetry 95 08/18/24 09:47 Oxygen Delivery Method Room Air 08/18/24 09:47 Temperature 100 F H 08/18/24 09:47 Pulse Rate 126 H 08/18/24 09:47 Respiratory Rate 16 08/18/24 09:47 Blood Pressure 105/65 08/18/24 09:47 Pulse Oximetry 95 08/18/24 09:47 Oxygen Delivery Method Room Air 08/18/24 09:47 Medications Administered Medications: Discontinued Medications Generic Name Dose Route Start Last Admin Trade Name Freq PRN Reason Stop Dose Admin Acetaminophen 1,000 mg 08/18/24 10:10 08/18/24 10:49 Acetaminophen 500 Mg Tablet PO 08/18/24 10:11 1,000 mg ONCE ONE Administration Famotidine 20 mg 08/18/24 10:10 08/18/24 10:51 Famotidine 10 Mg/Ml Inj IVP 08/18/24 10:11 20 mg ONCE ONE Administration Sodium Chloride 1,000 mls @ 1,000 mls/hr 08/18/24 10:15 08/18/24 11:41 0.9 % Sodium Chloride 1000 Ml IV 08/18/24 11:14 Infused .Q1H GENEVA Infusion Ondansetron HCl 4 mg 08/18/24 10:10 08/18/24 10:50 Ondansetron 2 Mg/Ml Inj IVP 08/18/24 10:11 4 mg ONCE ONE Administration MDM - Abdominal Pain Medical Records Attestation: I reviewed the patient's medical records. Lab Data Attestation: I reviewed the patient's lab results. Labs: Lab Results 08/18/24 08/18/24 Range/Units 10:32 10:40 WBC 7.58 (4.50-11.00) K/uL RBC 4.80 (4.30-5.90) m/uL Hgb 14.3 (13.5-17.5) gm/dL Hct 41.5 (37.0-53.0) % MCV 87 (80-100) fL MCH 30 (26-34) pg MCHC 35 (32-36) gm/dL RDW Coeff of Ginger 12.2 (11.5-15.5) % Plt Count 152 (140-440) K/uL Neut % (Auto) 82.6 H (42.0-72.0) % Lymph % (Auto) 7.5 L (20-44) % [place] % (Auto) 9.4 (0.0-11.0) % Eos % (Auto) 0.1 (0.0-7.0) % Baso % (Auto) 0.1 (0.0-3.0) % Neut # (Auto) 6.30 (1.7-7.0) K/uL Lymph # (Auto) 0.60 L (0.90-2.90) K/uL [place] # (Auto) 0.70 (0.00-0.90) K/UL Eos # (Auto) 0.01 (0.00-0.50) K/uL Baso # (Auto) 0.01 (0.00-0.30) K/uL Abs Immat Gran (auto) 0.02 (0.00-0.30) K/uL Imm/Tot Granulo (auto) 0.3 % Sodium 136 (135-149) mmol/L Potassium 3.7 (3.6-5.1) mmol/L Chloride 101 (96-114) mmol/L Carbon Dioxide 26 (20-32) mmol/L Anion Gap 9 (7-15) mEq/L BUN 8 (5-24) mg/dL Creatinine 0.8 (0.5-1.5) mg/dL Estimated Creat Clear 116.30 Estimated GFR 118 ml/min Glucose 100 (60-115) mg/dL Lactate 1.0 (0.5-1.9) mmol/L Calcium 8.6 (8.4-10.6) mg/dL Total Bilirubin 0.7 (0.1-1.5) mg/dL AST 36 H (12-35) U/L ALT 31 (4-50) U/L Alkaline Phosphatase 74 (40-150) U/L Total Protein 7.5 (6.0-8.3) g/dL Albumin 4.2 (3.3-5.0) g/dL Lipase 52 (23-300) U/L SARS-CoV-2 (PCR) Negative SARS-CoV-2 (Negative) Influenza Type A (PCR) Negative PCR FLU A (Negative) Influenza Type B (PCR) Negative PCR FLU B (Negative) RSV (PCR) Negative PCR RSV (Negative) Group A Strep DNA NOT DETECTED (Not Detectd) Discharge Plan Discharge Clinical Impression: Fever Patient Disposition: Home, Self-Care Condition: Improved Additional Instructions: Please follow up with your primary care provider in the next 2-3 days for further evaluation and follow-up. Please call the scheduling appointment. Please continue your own medications. Please rest, drink plenty of fluids. Please eat a soft/bland diet and slowly advanced as tolerated. Please alternate taking Tylenol 1000 mg and ibuprofen 600 mg every 6 hours as needed for pain. If your alternating these medications he should be taking something every 3 hours. Please return to the emergency department if you develop persistent high fever, persistent vomiting, severe abdominal pain, or any new or worsening symptoms. It was a pleasure taking care of you today. We hope you feel better soon. Prescriptions: No Action meloxicam 15 mg tablet 15 mg PO DAILY valacyclovir 500 mg tablet 500 mg PO DAILY omeprazole 40 mg capsule,delayed release(DR/EC) 40 mg PO DAILY Stand Alone Forms: [employer] Info Instructions
[2024-08-18] MEDS: 0.9 % SODIUM CHLORIDE 1000 ml 1,000 ML IV (10:43)
[2024-08-18 10:47] LABS: Basophils Absolute Auto 0.01 K/uL (0.00-0.30); Basophils Percent Auto 0.1 % (0.0-3.0); Eosinophils Absolute Auto 0.01 K/uL (0.00-0.50); Eosinophils Percent Auto 0.1 % (0.0-7.0); Hematocrit 41.5 % (37.0-53.0); Hemoglobin* 14.3 gm/dL (13.5-17.5); Immature Granulocytes Abs Auto 0.02 K/uL (0.00-0.30); Immature Granulocytes Pct Auto 0.3 %; Lymphocytes Percent Auto 7.5 % (20-44); Mean Corpuscular HGB Conc 35 gm/dL (32-36); Mean Corpuscular Hemoglobin 30 pg (26-34); Mean Corpuscular Volume 87 fL (80-100); Monocytes Percent Auto 9.4 % (0.0-11.0); Neutrophils Percent Auto 82.6 % (42.0-72.0); Platelet Count* 152 K/uL (140-440); RDW Coefficient of Variation % 12.2 % (11.5-15.5); White Blood Count* 7.58 K/uL (4.50-11.00)
[2024-08-18] MEDS: ACETAMINOPHEN 500 MG TABLET 1000 MG PO (10:49)
[2024-08-18] MEDS: ONDANSETRON 2 MG/ML inj 4 MG IVP (10:50)
[2024-08-18] MEDS: FAMOTIDINE 10 MG/ML inj 20 MG IVP (10:51)
[2024-08-18 10:54] LABS: Slide Review Reflex No
[2024-08-18 11:03] LABS: Albumin* 4.2 g/dL (3.3-5.0); Chloride* 101 mmol/L (96-114)
[2024-08-18 11:04] LABS: Potassium* 3.7 mmol/L (3.6-5.1); Sodium* 136 mmol/L (135-149)
[2024-08-18 11:06] LABS: Alanine Aminotransferase* 31 U/L (4-50); Alkaline Phosphatase* 74 U/L (40-150); Anion Gap 9 mEq/L (7-15); Aspartate Amino Transferase* 36 U/L (12-35); Bilirubin Total* 0.7 mg/dL (0.1-1.5); Blood Urea Nitrogen* 8 mg/dL (5-24); Carbon Dioxide* 26 mmol/L (20-32); Creatinine* 0.8 mg/dL (0.5-1.5); Estimated Glomerular Filt Rate 118 ml/min
[2024-08-18 11:07] LABS: Calcium* 8.6 mg/dL (8.4-10.6); Glucose* 100 mg/dL (60-115); Lipase* 52 U/L (23-300); Total Protein* 7.5 g/dL (6.0-8.3)
[2024-08-18 11:08] LABS: Strep A DNA Probe* NOT DETECTED (Not Detectd)
[2024-08-18 11:21] LABS: PCR FLU A Negative PCR FLU A (Negative); PCR FLU B Negative PCR FLU B (Negative); PCR RSV Negative PCR RSV (Negative); SARS PCR* Negative SARS-CoV-2 (Negative)
[2024-08-18] MEDS: KETOROLAC 15 MG/ML inj IVP (12:27)
== END 2024-08-18 12:39 | disposition home or self-care (01) ==
PROVIDERS: Emergency Provider Emergency Medicine
DX: R50.9 Fever, unspecified (principal); R10.31 Right lower quadrant pain
CPT/HCPCS: 36415; 80053; 81001; 83605; 83690; 85025; 87631; 87651; 96374; 96375; 99284; 99285; A9270; J1308; J1885; J2405; J7030